=== PATIENT | female | born 1940 | race Asian ===

== ENCOUNTER 2016-09-22 07:38 | Day surgery (SDC) | payer OTHER ==
[2016-09-22] VITALS (12 sets, daily range): BP systolic 124–148; BP diastolic 57–78; PULSE 64–87; RESP 14–23; Ht 160 cm; Wt 78.0 kg
[~2016-09-22] VITALS: Ht 160 cm; Wt 78.0 kg
[~2016-09-22 07:38] MED LIST: CEFAZOLIN 1 GM INJ ONE; CEFAZOLIN 2 GM/50 ML (PMX) 50 ML IVPB ONE; SOD CHLORIDE 0.9% 1,000 ML IV SCH
[2016-09-22] MEDS ORDERED: SIMV20TA PO (08:17)
[2016-09-22] MEDS ORDERED: LISI20TA11 PO (08:18)
[2016-09-22] MEDS ORDERED: IBUP-1542 PO (08:18)
[2016-09-22] MEDS ORDERED: CALC500T91 PO (08:19)
[2016-09-22] MEDS ORDERED: ANAS1TAB PO (08:19)
[2016-09-22] MEDS ORDERED: ASPI81TA3 PO (08:20)
[2016-09-22] MEDS ORDERED: METF500T3 PO (08:20)
[2016-09-22] MEDS ORDERED: ASPI-664 PO (08:21)
[2016-09-22] MEDS ORDERED: HYDR28CR9 TP (08:22)
[2016-09-22 08:32] LABS: BASOPHIL # 0.1 10^3/ul (0.0-0.1); BASOPHILS % 0.8 % (0.0-2.0); EOSINOPHILS # 0.3 10^3/ul (0.0-0.5); EOSINOPHILS % 5.3 % (0.0-7.0); HEMATOCRIT 42.2 % (37.0-47.0); HEMOGLOBIN 14.6 g/dl (12.0-16.0); LYMPHOCYTES # 1.6 10^3/ul (0.8-2.9); LYMPHOCYTES % 26.2 % (15.0-51.0); MEAN CORPUSCULAR HEMOGLOBIN 30.7 pg (29.0-33.0); MEAN CORPUSCULAR HGB CONC 34.6 g/dl (32.0-37.0); MEAN CORPUSCULAR VOLUME 88.8 fl (82.0-101.0); MEAN PLATELET VOLUME 9.3 fl (7.4-10.4); MONOCYTE # 0.6 10^3/ul (0.3-0.9); NEUTROPHILS % 58.4 % (39.0-77.0); PLATELET COUNT 208 10^3/UL (140-415); RED BLOOD COUNT 4.75 10^6/ul (4.20-5.40); RED CELL DISTRIBUTION WIDTH 12.9 % (11.5-14.5); WHITE BLOOD COUNT 6.2 10^3/ul (4.8-10.8)
[2016-09-22 08:54] LABS: INR 0.91; PARTIAL THROMBOPLASTIN TIME 26.6 Sec (25.0-35.0); PROTIME 12.3 Sec (12.2-14.2)
[2016-09-22 09:02] LABS: ALBUMIN 4.3 g/dl (3.3-4.9); ALBUMIN/GLOBULIN RATIO 1.07; BILIRUBIN,INDIRECT 0.3 mg/dl (0-1.1); BILIRUBIN,TOTAL 0.3 mg/dl (0.2-1.3); TOTAL PROTEIN 8.3 g/dl (6.1-8.1)
[2016-09-22 09:05] LABS: CALCIUM 9.6 mg/dl (8.4-10.2); CREATININE 0.88 mg/dl (0.44-1.00); POTASSIUM 4.2 mmol/L (3.5-5.1)
--- NOTE | 2016-09-22 09:34 | RADRPT ---
PROCEDURE: XR Chest. CLINICAL INDICATION: Chest pain TECHNIQUE: Single frontal view of the chest was obtained. COMPARISON: None FINDINGS: The heart is within normal limits. The thoracic aorta is calcified. There is elevation of the right diaphragm. There are linear right upper and lower lobe atelectatic changes. The lungs are otherwise clear. There is no pleural effusion or pneumothorax. RPTAT: AA IMPRESSION: Elevation of the right diaphragm. Calcified aorta consistent with atherosclerotic disease. Linear right upper and lower lobe atelectatic changes. .Tim Reich MD, Date Time Electronically viewed and signed by .Tim Reich MD, MD on 09/22/2016 09:33 .S/
[2016-09-22] MEDS ORDERED: FENTAnyl 50 MCG/ML VIAL ONE (09:46)
[2016-09-22] MEDS ORDERED: DIPHENHYDRAMINE 50 MG INJ IV PRN (10:00)
[2016-09-22] MEDS ORDERED: KETOROLAC 30 MG INJ IV PRN (10:00)
[2016-09-22] MEDS ORDERED: LABETALOL HCL 20MG INJ IV PRN (10:00)
[2016-09-22] MEDS ORDERED: EPHEDrine SULFATE 50 MG/5 ML SYG IV PRN (10:00)
[2016-09-22] MEDS ORDERED: OXYCODONE/ACETAMINOPHEN (5/325) TAB PO PRN ×2 (10:00)
[2016-09-22] MEDS ORDERED: ONDANSETRON 4 MG INJ IV PRN (10:00)
[2016-09-22] MEDS ORDERED: MEPERIDINE 25 MG INJ IV PRN (10:00)
[2016-09-22] MEDS ORDERED: hydrALAzine 20 MG INJ IV PRN (10:00)
[2016-09-22] MEDS ORDERED: FENTAnyl 50 MCG/ML VIAL IV PRN ×3 (10:00)
[2016-09-22] MEDS ORDERED: HYDROmorphONE (0.2 MG/ML) 10ML SYG IV PRN ×3 (10:00)
[2016-09-22] MEDS ORDERED: PROPOFOL 40 ML ONE (10:08)
[2016-09-22] MEDS ORDERED: DEXAMETHASONE 4 MG/ML 1 ML INJ ONE (10:08)
[2016-09-22] MEDS ORDERED: ONDANSETRON 4 MG INJ ONE (10:08)
[2016-09-22] MEDS ORDERED: LIDOCAINE 2% (SDV) 5 ML INJ ONE (10:09)
--- NOTE | 2016-09-22 10:54 | OPR ---
DATE OF OPERATION: 09/22/2016 SURGEON: Tino Singh MD DIRECTOR OF ARCHITECTURE: Britni Rodriguez MD. ANESTHESIOLOGIST: Dr. Purdy. PREOPERATIVE DIAGNOSIS: Diffuse pelvic and inguinal lymphadenopathy. Rule out malignancy. POSTOPERATIVE DIAGNOSIS: Diffuse pelvic and inguinal lymphadenopathy. Rule out malignancy. OPERATION PERFORMED: Excision of right groin mass. ANESTHESIA: General. INDICATIONS FOR PROCEDURE: The patient is a 76-year-old female with a pertinent past medical history of breast cancer. She presented with diffuse pelvic and inguinal lymphadenopathy. The primary care physician requested excision of the large right renal mass. Most likely, inguinal lymph node for definitive diagnosis. The patient consented and was scheduled for surgery. OPERATIVE PROCEDURE: Patient was brought to the operating theater and placed under general anesthesia. The right groin was shaved, prepped, and draped in the usual sterile fashion. The palpable mass which is at least 3 cm in diameter was identified. An incision was made directly over it. The subcutaneous tissue was dissected with cautery until the mass was identified. The masses and meticulously dissected using a combination of cautery and the LigaSure device, it was removed and sent fresh for pathologic analysis. The wound was irrigated. Minimal bleeding was controlled with cautery and the skin incision was then reapproximated with #2-0 nylon sutures in vertical mattress fashion. The patient tolerated procedure well. Estimated blood loss was 20 mL. There were no complications and the patient was transported in stable condition to the recovery room. Dictated By: Tino Singh MD /[email or web address] /Document#: [id number]
--- NOTE | 2016-09-22 11:06 | OPR ---
Date/Time of Note Date/Time of Note DATE: 09/22/16 TIME: 11:05 Operative Report Preoperative Diagnosis Diffuse pelvic and inguinal lymphadenopathy Postoperative Diagnosis Same Operation/Procedure Performed Excision of right groin mass/enlarged lymph node Surgeon: SAVANAH RAE MD assistant surveyor: TRUPTI GARCIA MD Anesthesia Type: general Estimated Blood Loss: 10 - 50 ml's Transfusion Required: no Specimens Right groin mass Grafts/Implants: none Complications: no SAVANAH RAE MD Sep 22, 2016 11:06
--- NOTE | 2016-09-22 13:53 | RADRPT ---
Vent Rate: 64 bpm RR Interval: 0 msec [place] Interval: 156 msec QRS Duration: 76 msec QT Interval: 406 msec QTC Interval: 418 msec P-R-T [place]: 60 - 43 - 40 degrees Normal sinus rhythm Nonspecific T wave abnormality Abnormal ECG Electronically Signed By: Terence Kaiser [id number]
== END 2016-09-22 12:31 | disposition home or self-care (01) ==
LOC: SDS 07:38
PROVIDERS: ATTEND Surgery Surgical Oncology
DX: C82.35 Follicular lymphoma grade IIIa, lymph nodes of inguinal region and lower limb (principal); I10 Essential (primary) hypertension; E11.9 Type 2 diabetes mellitus without complications; E78.5 Hyperlipidemia, unspecified; J45.909 Unspecified asthma, uncomplicated; Z85.3 Personal history of malignant neoplasm of breast
CPT/HCPCS: 11606; 71010; 80053; 82962; 85025; 85610; 85730; 87070; 87075; 87102; 87116; 88307; 88331; 93005; J0690; J1100; J1170; J2405; J3010